=== PATIENT | male | born 1995 | race African-American/Black ===

== ENCOUNTER → 2017-02-27 | Emergency (ER) | payer MEDICAID ==
[~2017-02-27] VITALS: Ht 193 cm; Wt 98.4 kg
[~2017-02-27] MED LIST: ALBUTEROL SULF8.5 GM INH; NKM; PEPCID40 MG PO; TAMIFLU75 MG ORAL
[2017-02-27 15:45] VITALS: BP 139/69
--- NOTE | 2017-03-01 08:14 | Emergency Room Report ---
History of Present Illness General Chief Complaint: Flu Like Symptoms Source: Patient, EMS Present Illness HPI Patient presents with 2 days of sore throat general bodyache pressure behind the eyes and pain with movement denies any neck pain or photophobia otherwise Patient denies any chest pain however he does have mild increased cough Patient does smoke marijuana Denies any vomiting or diarrhea denies any rash Denies any abdominal pain Denies any obvious fevers Allergies: Coded Allergies: No Known Allergies (Unverified , 02/27/17) Patient History Past Medical History: see triage record Pertinent Family History: none Reviewed Nursing Documentation: PMH: Agreed, PSxH: Agreed Nursing Documentation-PMH Past Medical History: No Stated History Review of Systems All Other Systems: negative except mentioned in HPI Physical Exam Vital Signs Date Time Temp Pulse Resp B/P (MAP) Pulse Ox O2 Delivery O2 Flow Rate FiO2 02/27/17 14:50 100.0 89 20 139/69 99 Room Air Sp02 EP Interpretation: reviewed, normal General Appearance: well appearing, no apparent distress Head: normocephalic, atraumatic Eyes: bilateral eye PERRL, bilateral eye EOMI ENT: hearing grossly normal, normal pharynx, TMs + canals normal, uvula midline Neck: full range of motion, supple, no meningismus, no bony tend Respiratory: lungs clear, normal breath sounds, no rhonchi, no respiratory distress, no retraction, no accessory muscle use Cardiovascular #1: normal peripheral pulses, regular rate, rhythm, no edema, no gallop, no JVD, no murmur Gastrointestinal: normal bowel sounds, non tender, soft, no mass, no organomegaly, non-distended, no guarding, no hernia, no pulsatile mass, no rebound Genitourinary: no CVA tenderness Musculoskeletal: normal inspection Neurologic: oriented x3, responsive, color artist III-XII nml as tested, motor strength/ tone normal, sensory intact Psychiatric: mood/affect normal Skin: normal color, no rash, warm/dry, palpation normal Lymphatic: normal inspection, no adenopathy Medical Decision Making Diagnostic Impression: Primary Impression: Influenza-like symptoms ER Course Patient does appear to have symptoms and signs with likely flulike symptoms Patient's lung sounds and oxygenation is appropriate I do not feel the patient met initial emergency x-ray imaging criteria Patient has had symptoms only for 2 days and will therefore be placed on medication and requests close followup Last Vital Signs Date Time Temp Pulse Resp B/P (MAP) Pulse Ox O2 Delivery O2 Flow Rate FiO2 02/27/17 15:45 100.0 89 20 139/69 99 Room Air Status: unchanged Disposition: HOME, SELF-CARE Condition: Stable Scripts Oseltamivir Phosphate (Tamiflu) 75 Mg Capsule 75 MG ORAL TWICE A DAY for 5 Days, CAP Prov: REBECCA TYLER D.O. 02/27/17 Albuterol Sulfate* (ALBUTEROL SULFATE MDI*) 8.5 Gm Hfa.aer.ad 2 PUFF INH Q6H, #1 EA 0 Refills Prov: REBECCA TYLER D.O. 02/27/17 Referrals: NON PHYSICIAN (PCP) Patient Instructions: Influenza, Adult, [id number] Additional Instructions: Patient is provided with the discharge instructions notified to follow up with primary doctor in the next 2-3 days otherwise return to the er with any worsening symptoms. Please note that this report is being documented using [employer] technology. This can lead to erroneous entry secondary to incorrect interpretation by the dictating instrument. REBECCA TYLER D.O. Mar 01, 2017 08:14
== END | disposition home or self-care (01) ==
LOC: EMR 15:48
DX: J11.1 Influenza due to unidentified influenza virus with other respiratory manifestations (principal); J02.9 Acute pharyngitis, unspecified; F12.90 Cannabis use, unspecified, uncomplicated
CPT/HCPCS: 99284

== ENCOUNTER 2017-03-05 10:34 | Emergency (ER) | payer MEDICAID ==
[~2017-03-05] VITALS: Ht 190.5 cm; Wt 98.4 kg
[~2017-03-05 10:34] MED LIST changes: -NKM; -PEPCID40 MG PO
[2017-03-05 10:58] VITALS: BP 120/78
[2017-03-05] MEDS ORDERED: NKM (11:16)
[2017-03-05] MEDS ORDERED: PEPCID40 MG PO (11:44)
[2017-03-05] MEDS ORDERED: Lidocaine 2% Visc 15ml soln ORAL ONE (11:45)
[2017-03-05] MEDS ORDERED: Mylanta II UD 30ml ORAL ONE (11:45)
--- NOTE | 2017-03-05 11:53 | Emergency Room Report ---
History of Present Illness General Chief Complaint: Pain Source: Patient Present Illness HPI 21YOM with 2 months of intermittent epigastric abd pain Occurs mostly after eating Assoc with gas Denies diarrhea, vomiting, fever./chills No foreign travel, sick contacts Not on any OTC meds Allergies: Coded Allergies: No Known Allergies (Unverified , 02/27/17) Patient History Past Medical History: none Past Surgical History: none Pertinent Family History: none Social History: Denies: smoking, alcohol use, drug use Immunizations: UTD Reviewed Nursing Documentation: PMH: Agreed, PSxH: Agreed Nursing Documentation-PMH Past Medical History: No History, Except For Review of Systems All Other Systems: negative except mentioned in HPI Physical Exam Vital Signs Date Time Temp Pulse Resp B/P (MAP) Pulse Ox O2 Delivery O2 Flow Rate FiO2 03/05/17 10:58 98.1 18 120/78 100 03/05/17 10:58 72 Sp02 EP Interpretation: reviewed, normal General Appearance: normal inspection, well appearing, no apparent distress, alert, GCS 15, non-toxic Head: normocephalic, atraumatic Eyes: bilateral eye PERRL, bilateral eye EOMI ENT: normal ENT inspection, hearing grossly normal, normal pharynx, no angioedema, normal voice, TMs + canals normal, uvula midline, moist mucus membranes Neck: normal inspection, full range of motion, supple, thyroid normal, no meningismus, no bony tend Respiratory: normal inspection, lungs clear, normal breath sounds, no rhonchi, no respiratory distress, no retraction, no accessory muscle use, no wheezing, speaking full sentences Cardiovascular #1: regular rate, rhythm, no edema, no JVD, normal capillary refill Gastrointestinal: normal inspection, normal bowel sounds, soft, no mass, no peritonitis, non-distended, no guarding, no hernia, no pulsatile mass, other - mild epigastric ttp Genitourinary: no CVA tenderness Musculoskeletal: normal inspection, back normal, normal range of motion, no calf tenderness, pelvis stable, Minna's Sign negative Neurologic: normal inspection, alert, oriented x3, responsive, security rep III-XII nml as tested, motor strength/tone normal, cerebellar normal, normal gait, speech normal Psychiatric: normal inspection, judgement/insight normal, mood/affect normal, no suicidal/homicidal ideation, no delusions Skin: normal inspection, normal color, no rash Lymphatic: normal inspection, no adenopathy Medical Decision Making Diagnostic Impression: Primary Impression: Gastritis Qualified Codes: K29.70 - Gastritis, unspecified, without bleeding ER Course 20-year-old male with likely gastritis versus PUD less likely Most likely dyspepsia GI cocktail given in ER with improvement in symptoms Rx Pepcid as needed for symptom control PMD followup for GI referral yo M F with DDX: Plan: Obtain labs, ua, ucx, ucg, CXR, EKG ER course: Patient has remained stable during ED stay. Disposition: Patient is to be discharged to home. Prescriptions given are pepcid Patient is instructed to follow up with their primary care doctor within 5 days. Strict return precautions discussed with patient such as fever, chills, worsening/severe pain, nausea, vomiting, which may indicate severe illness. Patient verbalizes understanding and agrees with plan. Please note that this Emergency Department Report was dictated using [employer] aided design technician technology software, occasionally this can lead to erroneous entry secondary to interpretation by the dictation equipment Last Vital Signs Date Time Temp Pulse Resp B/P (MAP) Pulse Ox O2 Delivery O2 Flow Rate FiO2 03/05/17 10:58 98.1 72 18 120/78 100 Status: improved Disposition: HOME, SELF-CARE Condition: Improved Scripts Famotidine (PEPCID) 40 Mg Tablet 40 MG PO DAILY for 7 Days, #14 TAB 0 Refills Prov: CHRISTIAN BOWEN M.D. 03/05/17 Patient Instructions: Gastritis, Adult, [id number] Additional Instructions: - Take pepcid each morning for stomach pain/gas until symptoms resolve - Follow up with your doctor if no improvement CHRISTIAN BOWEN M.D. Mar 05, 2017 11:53
[2017-03-05 12:04] VITALS: BP 120/78
== END 2017-03-05 12:00 | disposition home or self-care (01) ==
LOC: EMR 12:00
DX: K29.70 Gastritis, unspecified, without bleeding (principal)
CPT/HCPCS: 99283

== ENCOUNTER 2019-09-28 18:21 | Emergency (ER) | payer SELFPAY ==
[~2019-09-28] VITALS: Ht 190.5 cm; Wt 88.5 kg
[~2019-09-28 18:21] MED LIST changes: +NKM; +PEPCID40 MG PO
[2019-09-28 18:53] VITALS: BP 145/67
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
[2019-09-28] MEDS ORDERED: HYDROcodone/Acetamin 5/325 tab ORAL ONE (19:15)
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
--- NOTE | 2019-09-28 19:55 | NUR ---
ED Nurse Note: Pt reports decreased pain after medication. NAD at this time. Safety measures in place, will continue to monitor.
--- NOTE | 2019-09-28 20:15 | NUR ---
ED Nurse Note: IV line established, blood drawn by RN and sent to lab. Will administer IV antibx. Pt is in no acute distress, aaox4, breathing is normal and unlabored.
--- NOTE | 2019-09-28 20:30 | NUR ---
ED Nurse Note: Pt is resing in bed, speaking on phone with significant other with no distress noted. Pt eye patch on L eye reinforced. Will continue to monitor pt. No change in status at this time.
[2019-09-28 20:53] LABS: ANION GAP 10 mmol/L (5-15); BLOOD UREA NITROGEN 11 mg/dL (7-18); CALCIUM 9.8 MG/DL (8.5-10.1); CARBON DIOXIDE 28 MMOL/L (21-32); CHLORIDE 99 MMOL/L (98-107); CREATININE 1.2 MG/DL (0.55-1.30); POTASSIUM 4.2 MMOL/L (3.5-5.1); SODIUM 137 MMOL/L (136-145)
[2019-09-28 21:01] LABS: EOSINOPHILS % (AUTO) 0.9 % (0.0-3.0); HEMATOCRIT 46.6 % (42.0-52.0); HEMOGLOBIN 14.8 G/DL (14.2-18.0); LYMPHOCYTES % (AUTO) 15.1 % (20.0-45.0); MEAN CORPUSCULAR VOLUME 74 FL (80-99); MONOCYTES % (AUTO) 8.3 % (1.0-10.0); NEUTROPHILS % (AUTO) 74.7 % (45.0-75.0); PLATELET COUNT 199 K/UL (150-450); RED BLOOD COUNT 6.32 M/UL (4.70-6.10); RED CELL DISTRIBUTION WIDTH 13.8 % (11.6-14.8); WHITE BLOOD COUNT 9.7 K/UL (4.8-10.8)
[2019-09-28 21:09] LABS: INR 1.1 (0.9-1.1)
--- NOTE | 2019-09-28 21:40 | NUR ---
ED Nurse Note: Pt states he is feeling nauseous due to not eating all day. ERMD made aware. Pt remains NPO at this time. Will administer zofran for nausea.
--- NOTE | 2019-09-28 21:55 | Diagnostic Imaging Report ---
EXAM: CT Orbits Without Intravenous Contrast CLINICAL HISTORY: PAIN TECHNIQUE: Axial computed tomography images of the orbits without intravenous contrast. CTDI is 15 mGy and DLP is 198 mGy-cm. One or more of the following dose reduction techniques were used: automated exposure control, adjustment of the mA and/or kV according to patient size, use of iterative reconstruction technique. COMPARISON: No relevant prior studies available. FINDINGS: Orbits: Left periorbital hematoma/emphysema in the left periorbital preseptal region with some tiny soft tissue gas foci in the retrobulbar region although the left globe appears to be intact. Sinuses: Unremarkable. No air-fluid levels. Bones/joints: Centrally depressed acute fracture of the medial wall of the left orbit. Soft tissues: Unremarkable. IMPRESSION: 1. Centrally depressed acute fracture of the medial wall of the left orbit. 2. Left periorbital hematoma/emphysema in the left periorbital preseptal region with some tiny soft tissue gas foci in the retrobulbar region although the left globe appears to be intact.
[2019-09-28 22:20] VITALS: BP 111/77
--- NOTE | 2019-09-28 22:20 | NUR ---
ED Nurse Note: Pt is aware of transfer to [facility]. Pt provided with warm blankets for comfort. Pt vital signs are stable. Pt is aaox4, no respiratory distress. All safety measures in place.
--- NOTE | 2019-09-28 23:55 | NUR ---
ED Nurse Note: Report given to [employer] business partner at [facility].
--- NOTE | 2019-09-29 00:30 | NUR ---
ED Nurse Note: Pt is resting in bed with safety measures in place. Pt is in no acute distress. Awaiting on transport to [facility] at this time.
[2019-09-29 01:00] VITALS: BP 148/92
--- NOTE | 2019-09-29 01:00 | NUR ---
ED Nurse Note: Pt is stable for transfer to [facility] at this time per ERMD. Pt is aaox4, breathing is normal and unlabored and he is in no acute distress upon ED departure. Pt is being transported by [facility] BLS unit [id number]. Report given to EMS crew. Pt vital signs are stable. Pt took all belongings. IV is patent and intact. Pt L eye cover remains in place and intact. All paperwork sent with ambulance crew.
== END 2019-09-29 01:00 | disposition other institution (70) ==
LOC: EMR 19:06
DX: S02.85XA Fracture of orbit, unspecified, initial encounter for closed fracture (principal); S05.8X2A Other injuries of left eye and orbit, initial encounter; T79.7XXA Traumatic subcutaneous emphysema, initial encounter; Y04.2XXA Assault by strike against or bumped into by another person, initial encounter; Y93.9 Activity, unspecified; Y92.9 Unspecified place or not applicable
CPT/HCPCS: 36415; 70480; 80048; 85025; 85610; 85730; 86850; 86900; 86901; 96361; 96365; 96375; 99291; J1956; J2405; J7030; U0002